=== PATIENT | male | born 1945 | race Caucasian/White ===

== ENCOUNTER 2019-11-02 17:56 | Emergency (ER) | payer SELFPAY ==
--- NOTE | 2019-11-02 18:46 | RAD ---
SINGLE VIEW OF THE CHEST: 11/02/19 COMPARISON: None. HISTORY: Chest pain, shortness of breath. FINDINGS: Single view of the chest shows a normal sized cardiomediastinal silhouette. There is a Mediport with its tip in the superior vena cava. There is no evidence of consolidation, mass or pleural effusion. H ardware is seen in the cervical spine. IMPRESSION: No evidence of acute cardiopulmonary disease. POS: E[facility]
[2019-11-02 18:47] LABS: #Eosinphils 0.1 thou/uL (0.0-0.7); #Lymphocytes 0.7 thou/uL (1.20-3.40); #Monocytes 0.6 thou/uL (0.11-0.59); #Neutrophils 5.7 thou/uL (1.40-6.50); %Basophils 0.4 % (0.0-1.0); %Eosinophils 1.9 % (0.0-10.0); %Lymphocytes 9.9 % (21.0-51.0); %Monocytes 7.7 % (0.0-10.0); Mean Corpuscular HGB CONC 34.2 g/dL (32.0-36.0); Mean Corpuscular Hemoglobin 31.7 pg (27.0-31.0); Mean Corpuscular Volume 92.6 fL (78.0-98.0); Platelet Count 211 thou/uL (130-400); RBC Distribution Width 11.8 % (11.5-14.5); White Blood Cell (WBC) Count 7.2 thou/uL (4.8-10.8)
[2019-11-02 19:10] LABS: ALT (SGPT) 15 U/L (8-55); AST (SGOT) 13 U/L (5-34); Albumin 4.2 g/dL (3.4-4.8); Alkaline Phosphatase 85 U/L (40-110); Anion Gap 15 mmol/L (10-20); BUN (Urea Nitrogen) 28 mg/dL (8.4-25.7); Bilirubin, Total 0.2 mg/dL (0.2-1.2); Calc. Creatinine Clearance 0 mL/min (70-130); Calcium 9.7 mg/dL (7.8-10.44); Carbon Dioxide 24 mmol/L (23-31); Chloride 105 mmol/L (98-107); Estimated GFR-MDRD 51; Globulin 2.7 g/dL (2.4-3.5); Glucose 127 mg/dL (83-110); Protein, Total 6.9 g/dL (5.8-8.1); Sodium 140 mmol/L (136-145)
--- NOTE | 2019-11-02 19:22 | CT ---
CT OF THE HEAD 11/02/19 COMPARISON: None. HISTORY: Injury, pain, dizziness and nausea. TECHNIQUE: Axial CT imaging at 5 mm intervals from vertex through skull base without contrast. FINDINGS: Partially imaged paranasal sinuses demonstrate mucosal thickening/partial opacification of ethmoid ai r cells and maxillary sinus on the left. No displaced calvarial fracture, intracranial hemorrhage, mi dline shift or mass effect. IMPRESSION: No intracranial hemorrhage or displaced calvarial fracture. Results called to Elena Garg at 6:56 p.m., 11/02/19. Code CR POS: SAPNA
--- NOTE | 2019-11-03 15:19 | EKG ---
Test Reason : Blood Pressure : / mmHG Vent. Rate : 055 BPM Atrial Rate : 055 BPM P-R Int : 142 ms QRS Dur : 102 ms QT Int : 428 ms P-R-T Axes : 022 001 039 degrees QTc Int : 409 ms Sinus bradycardia Minimal voltage criteria for LVH, may be normal variant Borderline ECG Confirmed by MIGNON MUNGUIA ([id number]), editor managing director KYLEE FUCHS ([id number]) on 11/03/2019 3:19:01 PM Referred By: Confirmed By:MIGNON Kahn
== END 2019-11-02 20:47 | disposition home or self-care (01) ==
LOC: ERS 17:56
DX: R42 Dizziness and giddiness (principal); R11.0 Nausea; I10 Essential (primary) hypertension; E11.9 Type 2 diabetes mellitus without complications; C44.42 Squamous cell carcinoma of skin of scalp and neck; V43.52XA Car driver injured in collision with other type car in traffic accident, initial encounter
CPT/HCPCS: 70450; 71045; 80053; 84484; 85025; 93005; 94760